=== PATIENT | male | born 1970 | race Caucasian/White ===

== ENCOUNTER 2016-10-25 13:12 | Emergency (ER) | payer OTHER ==
[~2016-10-25] VITALS: Ht 182.9 cm; Wt 111.1 kg
[~2016-10-25 13:12] MED LIST: ATIVAN1 MG PO; CLEOCIN HCL300 MG PO; COREG25 MG PO; COREG6.25 MG PO; CYMBALTA60 MG PO; DIOVAN 80 MG TA80 M1 PO; DIOVAN HCT 3201 EAC1 PO; MAXZIDE-25 MG1 EACH PO; MOBIC15 MG PO; MORPHINE SULFAT15 M3 PO; MS CONTIN 30 MG30 M1 PO; NORCO 5-325 TA1 EACH PO; NORFLEX100 MG PO; TOPAMAX 100 MG100 MG PO; TRAZODONE 150150 M1 PO; VALSARTAN-HCTZ1 EAC3 PO
[2016-10-25] MEDS ORDERED: CYMBALTA60 MG PO (13:31)
== END 2016-10-25 13:49 | disposition home or self-care (01) ==
LOC: ER 13:12
DX: Z76.0 Encounter for issue of repeat prescription (principal); F41.9 Anxiety disorder, unspecified; I10 Essential (primary) hypertension; F32.9 Major depressive disorder, single episode, unspecified; Z87.891 Personal history of nicotine dependence; Z90.49 Acquired absence of other specified parts of digestive tract